=== PATIENT | male | born 1980 | race Hispanic/Latino ===

== ENCOUNTER 2017-08-11 17:55 | Emergency (ER) | payer OTHER ==
[2017-08-11] MEDS: AMOXICILLIN 500 MG CAP PO (19:25)
[2017-08-11 19:42] LABS: INFLUENZA A AMPLIFICATION NEGATIVE (NEGATIVE); INFLUENZA B AMPLIFICATION NEGATIVE (NEGATIVE)
== END 2017-08-11 20:00 | disposition home or self-care (01) ==
LOC: M ED 17:55
DX: J02.0 Streptococcal pharyngitis (principal)
CPT/HCPCS: 87502